=== PATIENT | male | born 1995 ===

== ENCOUNTER 2025-04-02 17:00 | Emergency (ER) | payer OTHER, SELFPAY ==
[2025-04-02 17:47] VITALS: BP 131/88; PULSE 74; RESP 17; TEMP 36.7; O2SAT 99; BMI 24.3
--- OUTSIDE RECORDS SUMMARY | 2025-04-02 17:56 | XMS_ITS | Clinical Summary ---
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 02/04/2025 Encounters Date Type Department Care Team Description 02/05/2025 Documentation [facility] Health Information Management [id number] [phone] Zully Hudson MD 02/04/2025 11:30 AM PDT Office Visit [facility] [address] [place] [address] [place] [address] Kehinde Vinson MD 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 (Primary Dx) 02/04/2025 Travel from Last 3 Months Social History Tobacco Use Types Packs/Day Years Used Date Smoking Tobacco: Never Smokeless Tobacco: Never Tobacco Cessation:Counseling Given: Not Answered Alcohol Use Standard Drinks/Week Comments Yes 6 (1 standard drink = 0.6 oz pur e alcohol) Sex and Gender Information Value Date Recorded Sex Assigned at Not on file Legal Sex Male 10:39 AM PDT Gender Identity Not on file Sexual Orientation Not on file Plan of Treatment Health Maintenance Due Date Last Done Comments HIV Screening 1993 Hepatitis B Screening 2011 Hepatitis C Screening 2011 Adult Depression Screening 02/08/2012 DTaP/Tdap/Td Vaccines (2 - T d or Tdap) 08/17/2016 07/20/2016 HPV Vaccines (3 - Male 3-dos e series) 01/21/2017 09/07/2016, 07/22/2016 COVID-19 Vaccine ( - 2024-2 6 season) 2024 Influenza Vaccine (#1) 2024 RSV: At-Risk Patients (60+ Years) and Gestational Age of 32-36 Weeks for Patients (1 - 1-dose 75+ series) 02/08/2068 Hepatitis B Vaccines Completed 03/17/1994, 1993, 1993 Meningococcal Vaccine Aged Out 07/20/2016 No camilo jessica eligible based on patient's age to complete this topic Hepatitis A Vaccines Aged Out No long er eligible based on patient's age to complete this topic Pneumococcal Vaccine: Pediatrics (0 to 5 Years) and At-Risk Patients (6 to 64 Years) Aged Out No longer eligible b ased on patient's age to complete this topic RSV: Pediatric Patients Age 0-20 months Aged Out No longer eligible b ased on patient's age to complete this topic Insurance [facility] Advance Directives * Full Code (Latest Code Status on File) Date Activated Date Inactivated Comments 02/04/2025 3:11 PM 02/04/2025 5:11 PM
[2025-04-02] MEDS: LIDOCAINE 1% W/EPI 10ML 4 ML INJ (19:33)
[2025-04-02 19:35] VITALS: BP 137/85; PULSE 73; RESP 16; O2SAT 100
--- NOTE | 2025-04-02 19:47 | ED.WOUNDLAC ---
HPI - Wound/Laceration General Chief Complaint: Wound/Laceration Stated Complaint: R hand laceration on palm Time Seen by Provider: 04/02/25 18:34 Source: patient Mode of arrival: Ambulatory History of Present Illness HPI narrative: 30y M presents with right hand laceration while moving a mirror with a pole around it. 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 He is able to move all his fingers and thumb with no difficulty. Other than what is stated 14 review system is negative. Related Data Home Medications ?Medication ?Instructions ?Recorded ?Confirmed No Known Home Medications 04/02/25 04/02/25 Allergies Allergy/AdvReac Type Severity Reaction Status Date / Time No Known Drug Allergies Allergy Verified 04/02/25 17:49 Review of Systems Review of Systems ROS Unobtainable: All systems reviewed & are unremarkable except as noted in HPI and below Exam Narrative Exam Narrative: GENERAL: [30] year old patient appears stated age. Well-developed patient, in mild distress. HEAD: Atraumatic. Normocephalic. EYES: Pupils equal round and reactive. Extraocular motions intact. No scleral icterus. No injection or drainage. NECK: Trachea midline. Non tender NEURO: AOx3. SKIN: R do side hand vertical superficial laceration just below base of index finger 1.0x1.0 cm motor/sensory radial pulse cap refill <2secs Initial Vital Signs Initial Vital Signs: Vital Signs Temperature 98.0 F 04/02/25 17:47 Pulse Rate 74 04/02/25 17:47 Respiratory Rate 17 04/02/25 17:47 Blood Pressure 131/88 04/02/25 17:47 Pulse Oximetry 99 04/02/25 17:47 Oxygen Delivery Method Room Air 04/02/25 17:47 Procedures Laceration Repair Laceration 1: Time of procedure: 19:50 Site: hand Side (If applicable): right Size (cm): 1.0 Description: linear Depth: simple, single layer Local Anesthetic: lidocaine 1% and with epi Amount of anesthesia used (mL): 3 Pre-repair: irrigated extensively Skin layer closed with: nylon Skin layer suture size: 5-0 Number of sutures: 6 Technique: simple, interrupted Course Orders Ordered: Discontinued Medications Lidocaine/Epinephrine (Lidocaine 1% W/Epi 10ml) 4 ml INJ INTRA-OP ONE Stop: 04/02/25 19:32 Last Admin: 04/02/25 19:33 Dose: 4 ml Documented By: GURVINDER Vital Signs Vital signs: Vital Signs - 8 hr 04/02/25 17:47 04/02/25 19:35 Temperature 98.0 F Pulse Rate 74 73 Respiratory Rate 17 16 Blood Pressure 131/88 137/85 Pulse Oximetry 99 100 Oxygen Delivery Method Room Air Room Air MDM - Wound/Laceration MDM Narrative Medical decision making narrative: All lab work, vital signs, nurse triage note, medication list, previous ER visits, and all imaging studies reviewed. 6 stitches using 5.0 ethlicon placed single interrupted with bacitracin ointment applied. Suture removal 10-14 days. differential diagnosis laceration, cellulitis, foreign body, tetanus Discharge Plan Departure Patient Disposition: Home Clinical Impression: Hand laceration Instructions: DI for Laceration Repair Activity Restrictions/Additional Instructions: return with new or worsening symptoms. suture removal in 10-14 days with PCP. Prescriptions: No Action No Known Home Medications Stand Alone Forms: Patient Portal/API
[2025-04-02] MEDS: BACITRACIN OINT 0.9 GM PCKT 1 APPLIC TOP (19:54)
== END 2025-04-02 20:02 | disposition home or self-care (01) ==
PROVIDERS: Emergency Provider Family Medicine
DX: S61.411A Laceration without foreign body of right hand, initial encounter (principal); W26.8XXA Contact with other sharp object(s), not elsewhere classified, initial encounter
CPT/HCPCS: 12001; 99283